=== PATIENT | male | born 1995 | race Caucasian/White ===

== ENCOUNTER 2017-07-07 08:22 | Outpatient (CLI) | payer OTHER ==
[2017-07-07 14:27] LABS: Hemoglobin 16.1 g/dL (14.0-18.0); Mean Corpuscular HGB CONC 33.6 g/dL (32.0-36.0); Mean Corpuscular Hemoglobin 32.5 pg (27.0-31.0); Mean Platelet Volume 7.2 fL (7.4-10.4); Platelet Count 330 thou/uL (130-400); Red Blood Cell (RBC) Count 4.93 mill/uL (4.70-6.10); White Blood Cell (WBC) Count 6.5 thou/uL (4.8-10.8)
[2017-07-07 14:32] LABS: INR-International Normal Ratio 0.9; Prothrombin Time 12.5 SEC (12.0-14.7)
[2017-07-07 14:33] LABS: PTT 30.2 SEC (22.9-36.1)
[2017-07-07 14:35] LABS: Bilirubin Negative (Negative); Blood, Urine Negative (Negative); Clarity CLEAR (Clear); Glucose, Urine (Dipstick) Negative (Negative); Leukocyte Negative (Negative); Nitrite Negative (Negative); Protein, Urine (Dipstick) Negative (Neg-Trace); Specific Gravity, Urine 1.006 (1.002-1.036); Urobilinogen 0.2 mg/dL (0.2-1.0); pH, Urine 6.5 (5.0-9.0)
[2017-07-07 14:43] LABS: Bacteria/HPF None Seen HPF (None Seen); Hyaline Casts/LPF 0-3 HYALINE CAST LPF (0-3 Hyaline); Pathc Cast-AUWi Flag 0.14 (0-2.49); RBC/HPF 0-3 HPF (0-3); Squamous Epithelial None Seen HPF (0-3); WBC/HPF None Seen HPF (0-3)
[2017-07-07 14:49] LABS: Anion Gap 14 mmol/L (10-20); BUN (Urea Nitrogen) 11 mg/dL (8.9-20.6); Calc. Creatinine Clearance 0 mL/min (70-130); Calcium 10.8 mg/dL (7.8-10.44); Carbon Dioxide 26 mmol/L (22-29); Chloride 105 mmol/L (98-107); Estimated GFR-MDRD Greater than 90; Glucose 92 mg/dL (70-105); Potassium 4.5 mmol/L (3.5-5.1); Sodium 140 mmol/L (136-145)
== END 2017-07-07 08:23 | disposition home or self-care (01) ==
LOC: LABBT 08:22
PROVIDERS: ATTEND Urology
DX: Z01.818 Encounter for other preprocedural examination (principal); N20.2 Calculus of kidney with calculus of ureter
CPT/HCPCS: 80048; 81001; 85027; 85610; 85730; 87086

== ENCOUNTER 2017-07-07 11:38 | Outpatient (CLI) | payer OTHER ==
--- NOTE | 2017-07-07 14:21 | CT ---
CT ABDOMEN AND PELVIS WITHOUT CONTRAST: Date: 07/07/17 HISTORY: N13.2, renal stone with hydronephrosis. Hematuria. Right-sided flank pain. COMPARISON: None. FINDINGS: Lung bases are clear. No pericardial effusion. Multiple nonobstructive bilateral renal calculi in the right superior and left inferior poles. There is a distal, partially obstructive calculus in distal right ureter measuring 2.0 x 4.0 mm, 1.0 cm pro ximal to ureterovesical junction. No calculus present in the urinary bladder. Minimal right-sided hyd roureter. Aortoiliac contour is normal. No free intraperitoneal gas or fluid. Liver and gallbladder u nremarkable, as well as spleen and pancreas on noncontrast evaluation. IMPRESSION: 1. Partially obstructive 2.0 x 4.0 mm right distal ureteral calculus 1.0 cm proximal to ureterovesic al junction. 2. Small, punctate calculi in both kidneys. 3. Normal appendix. POS: STEVE
== END 2017-07-07 11:39 | disposition home or self-care (01) ==
LOC: CT 11:38
PROVIDERS: ATTEND Urology
DX: N13.2 Hydronephrosis with renal and ureteral calculous obstruction (principal)
CPT/HCPCS: 74176

== ENCOUNTER 2017-07-09 05:46 | Day surgery (SDC) | payer OTHER ==
[2017-06-23 10:16] VITALS: BMI 25.7
[2017-07-09] MEDS ORDERED: Levofloxacin 500 mg/D5W 100 ml Premix Bag ONE (06:36)
[2017-07-09] MEDS ORDERED: Fentanyl 100 MCG/2 ML VIAL ONE ×2 (06:46→09:06)
[2017-07-09] MEDS ORDERED: Midazolam HCl 2 mg/2 ml Vial ONE (07:21)
[2017-07-09] MEDS ORDERED: Ondansetron HCl/PF 4 MG/2 ML Vial ONE ×2 (07:53→16:24)
[2017-07-09] MEDS ORDERED: B & O ONE (08:49)
[2017-07-09] MEDS ORDERED: Phenazopyridine HCl 97.5 MG TABLET ONE ×2 (08:57)
--- NOTE | 2017-07-09 09:25 | OP ---
DATE OF PROCEDURE: 07/09/2017 SERVICE: Urology. SURGEON: Lyle Vega M.D. PREOPERATIVE DIAGNOSIS: Right ureteral renal stone. POSTOPERATIVE DIAGNOSIS: Right ureteral renal stone. PROCEDURE PERFORMED: Right ureteroscopy, laser lithotripsy, basket extraction of stone, and placemen t of a 6 x 28 double-J stent. INDICATIONS FOR PROCEDURE: Steve is a 21-year-old white male who initially presented to me with righ t flank pain. His CT from the emergency room had demonstrated an approximately 2-3 mm proximal right ureteral stone with an additional 2 mm stone within the kidney. We elected to do a trial of medical expulsive therapy as the patient had a high likelihood of passing the stone. Unfortunately, the pat ient did not pass the stone and a repeat CT confirmed that the stone was now in the distal ureter. H e is now coming in for ureteroscopy and extraction of the stone along with the renal stone. Risks an d benefits have been discussed. The patient has agreed to proceed forward. DESCRIPTION OF PROCEDURE: After identification of armband and verification of consent, the patient w as brought to the operating room, he was given general anesthesia with an LMA. He was placed in dors al lithotomy position and prepped and draped in usual sterile fashion. After appropriate timeout, a lubricated 22 Guyanese rigid cystoscope was introduced per urethra into the bladder. Urethra was sin l without strictures. The prostate was nonobstructive and the bladder was normal. Both ureters were in orthotopic location. Attention was turned to the right ureteral orifice which was cannulated wit h a 0.035 sensor-tip wire up to the level of the renal pelvis. The cystoscope was then removed leavi ng the sensor wire in place. A dual-lumen catheter was then inserted into the distal ureter to dilat e the ureteral orifice gently to allow easier passage of a rigid ureteroscope, the dual-lumen was the n removed and the sensor wire affixed to the drape as a safety wire. A semi rigid ureteroscope was t hen passed through the urethra alongside the sensor wire into the distal right ureter where the stone was encountered. There was significant narrowing of the distal ureter indicative of likely a segmen t of where the stone could not pass. A 200 micron laser fiber was then used to fragment the stone in to several pieces and then a 1.9 Guyanese 0 tip nitinol basket used to grasp the fragments and bring th em out for stone analysis. Upon final ureteroscopy, there was no additional stone fragments within t he distal ureter. Ureteroscope was then removed and the dual-lumen catheter was advanced over the se nsor wire back into the distal ureter, all the way up to the proximal ureter. A Super Stiff wire was then advanced through the second lumen up to the level of the renal pelvis. The dual-lumen was then removed. The sensor wire was affixed to the drapes as a safety wire. A 11/13 x 46 cm ureteral acce ss sheath was then advanced over the Super Stiff wire up to the level of the proximal ureter. The in ner cannula and Super Stiff wire were then removed leaving the outer sheath and the sensor wire in pl johnny as a safety wire. A flexible digital ureteroscope was then [facility] the [facility] the renal pelvis. Full pyeloscopy was performed and the additional 2 mm stone was noted wi thin the renal pelvis. No additional stones were noted and there were no significant Jevon's plaqu es or other calcifications. The stone was small enough that we can simply grab it with a basket and bring it out for extraction. This was done and the ureteroscope was then reinserted and the ureteral access sheath and pullback ureteroscopy employed to check the ureter and no additional stones were f ound. Satisfied, the patient was now stone free, all instrumentation was removed except the sensor w trevor. This was used to backload a rigid cystoscope back into the bladder and a 6 x 28 double-J ureter al stent was advanced over sensor wire back into the renal pelvis. The wire was then removed leaving a good curl in the pelvis and good curl in the bladder. The bladder was then emptied and the cystos cope removed. The patient was then awakened and taken to PACU for recovery in stable condition. COMPLICATIONS: None. ESTIMATED BLOOD LOSS: Minimal. RETAINED TUBES AND DRAINS: 6 x 26 double-J stent on the right. SPECIMENS: Stone for stone analysis. DISPOSITION: The patient will be discharged home and follow up with me in approximately a week for s tent removal.
[2017-07-09] MEDS ORDERED: Morphine 4 MG/ML VIAL ONE (09:59)
[2017-07-09] MEDS ORDERED: HYDROcodone/Acetaminophen 5/325 mg Tablet ONE (10:00)
[2017-07-09] MEDS ORDERED: Promethazine HCl 25 MG/ML VIAL ONE (11:31)
[2017-07-09] MEDS ORDERED: PROPOFOL 200 MG/20 ML VIAL ONE (16:24)
[2017-07-09] MEDS ORDERED: Dexamethasone 20 MG/5 ML VIAL ONE (16:24)
[2017-07-09] MEDS ORDERED: Lidocaine 1% PF 5 ML VIAL ONE (16:24)
[2017-07-09] MEDS ORDERED: Ketorolac Tromethamine 30 MG/ML VIAL ONE (16:24)
[2017-07-14 15:32] LABS: CA Oxalate Dihydrate 15 % (.); CA Oxalate Monohydrate 75 % (.); CA Phosphate 10 % (.); Color Brown (.); Stone Weight 9.4 mg (.)
== END 2017-07-09 12:07 | disposition home or self-care (01) ==
LOC: SDC 05:46
PROVIDERS: ATTEND Urology
PROC: 0TF68ZZ Fragmentation in Right Ureter, Via Natural or Artificial Opening Endoscopic (ICD-10-PCS; principal; 2017-07-09)
PROC: 0T768DZ Dilation of Right Ureter with Intraluminal Device, Via Natural or Artificial Opening Endoscopic (ICD-10-PCS; principal; 2017-07-09)
DX: N20.0 Calculus of kidney (principal); N20.1 Calculus of ureter; F90.9 Attention-deficit hyperactivity disorder, unspecified type; F17.210 Nicotine dependence, cigarettes, uncomplicated; F41.9 Anxiety disorder, unspecified; Z79.899 Other long term (current) drug therapy; Z72.89 Other problems related to lifestyle
CPT/HCPCS: 76000; 82365; 88300; 96374; 96375; C1769; J1100; J1885; J1956; J2001; J2250; J2270; J2405; J2550; J2704; J3010